=== PATIENT | male | born 1995 | race Caucasian/White ===

== ENCOUNTER 2017-12-08 20:58 | Emergency (ER) | payer OTHER ==
[~2017-12-08] VITALS: Ht 182.9 cm; Wt 74.5 kg
[2017-12-08 21:03] VITALS: Ht 182.9 cm; Wt 74.5 kg
--- NOTE | 2017-12-08 22:03 | DIAGNOSTIC IMAGING REPORT ---
HEAD WITHOUT CONTRAST (CT) CLINICAL HISTORY: 22 years-old Male presenting with FALL, SCALP LAC, EtOH. TECHNIQUE: Multidetector CT imaging of the head was performed without the use of intravenous contrast. IV contrast: None. A dose lowering technique was used consistent with the principles of ALARA (as low as reasonably achievable). COMPARISON: None. CT DOSE (mGy.cm): The estimated cumulative dose is 1671.01 mGy.cm. FINDINGS: Motion artifact degrades image quality. Plaster Helper topogram: Unremarkable. Ventricles and sulci normal in size. Brain parenchyma normal in appearance with preserved mendez-white differentiation. No mass effect or midline shift. No hemorrhage or acute territorial infarct. No extra-axial fluid collection. Paranasal sinuses and mastoid air cells clear. Calvarium intact. IMPRESSION: 1. No acute intracranial abnormality. Electronically signed by: Rigo Byrnes M.D. 12/08/2017 10:01 PM Dictated Date/Time: 12/08/2017 9:58 PM
--- NOTE | 2017-12-08 22:07 | DIAGNOSTIC IMAGING REPORT ---
CERVICAL SPINE W/O CLINICAL HISTORY: 22 years-old Male presenting with FALL, SCALP LAC. TECHNIQUE: Multidetector CT of the cervical spine was performed without the use of intravenous contrast. IV contrast: None. A dose lowering technique was used consistent with the principles of ALARA (as low as reasonably achievable). COMPARISON: None. CT DOSE (mGy.cm): The estimated cumulative dose is 1671.[address] head. FINDINGS: Glass Crusher topogram: Unremarkable. Motion artifact significantly degrades image quality limiting diagnostic sensitivity. Normal cervical lordosis. No gross evidence of acute fracture or subluxation. Vertebral bodies maintain normal height and alignment. Intervertebral disc heights preserved. No degenerative change. No osseous spinal canal or neural foraminal narrowing. Skull base intact. Paraspinal soft tissues within normal limits allowing for noncontrast technique. Lung apices clear. IMPRESSION: No acute osseous injury of the cervical spine allowing for extensive motion artifact. Electronically signed by: Rigo Byrnes M.D. 12/08/2017 10:05 PM Dictated Date/Time: 12/08/2017 10:03 PM
--- NOTE | 2017-12-08 22:44 | EMERGENCY ROOM VISIT NOTE ---
ED Visit Note First contact with patient: 21:14 CHIEF COMPLAINT: Scalp laceration HISTORY OF PRESENT ILLNESS: Patient is a 22-year-old male brought to the emergency department by male friends and accompanied by hospital security to the exam room for evaluation of a scalp laceration that he sustained just prior to arrival. Patient is visibly intoxicated, and initially was uncooperative hence involvement of the security staff. Patient is intoxicated and admits to drinking alcohol this evening. He reportedly fell down stairs and hit the back of his head although friends who accompany him were not with him at the time of the incident and therefore cannot corroborate his story. They did apply ice, and the patient did rinse his head. Further history is unable to be obtained due to the patient's level of intoxication. He denies any complaints. REVIEW OF SYSTEMS: Unable to be assessed due to patient's level of intoxication and lack of cooperation. PMH: The patient is reportedly healthy without any chronic medical problems. Takes medications for migraines. 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 PHYSICAL EXAM: Vital Signs: Reviewed Nurse's notes. CONSTITUTIONAL: Patient is a visibly intoxicated, sporadically cooperative 22- year-old male who is awake and alert and in no acute distress. He smells of alcohol, and is slurring speech. He is able to ambulate independently into the bathroom. HEENT: 1.5 cm right occipital scalp laceration noted. Pupils equal, round, reactive to light and accommodation. EOMs intact without nystagmus. Mild conjunctival injection noted.. Tympanic membranes intact, with normal landmarks. External canals are clear. No hemotympanum or Gramajo sign. Oral and nasopharynx are clear. No CSF rhinorrhea. Mucous membranes are moist. NECK: Supple, nontender, no lymphadenopathy. Full range of motion. HEART: Tachycardic rate and rhythm, with normal S1 and S2, no murmur or gallop or rub is heard. LUNGS: Breath sounds equal and clear to auscultation without wheezes, rales, or rhonchi heard. SKIN: No lesions or rash, normal skin turgor. EXTREMITIES: No cyanosis, edema, joint tenderness or swelling. No deformity. NEUROLOGICAL: Alert and oriented x4. Cranial nerves 2 through 12, sensation and strength grossly intact. Gait is normal. EMERGENCY DEPARTMENT COURSE: The patient was seen and evaluated as above. Given the unwitnessed fall, resulting in the scalp laceration and associated level of intoxication, head and cervical spine CT scans were obtained and were negative for acute pathology. The patient's scalp wound was cleaned with saline and Betadine and irrigated with saline. Sterile technique was used and the wound edges were then approximated with 3 skin sheree. Bacitracin ointment was applied as a dressing. Verbal and written head injury and wound care instructions were outlined with both the patient and 3 male friends who were sober, and were willing and comfortable to be responsible for the patient through the remainder of the evening. Differential diagnoses entertained included laceration, scalp contusion, acute intracranial bleed, skull fracture, C-spine injury, among others. Blood pressure screening : Patient was found to have normal blood pressure on screening and does not require follow-up. Unable to verify patient's medications, he stated only that he takes a migraine medication. CERVICAL SPINE W/O CLINICAL HISTORY: 22 years-old Male presenting with FALL, SCALP LAC. TECHNIQUE: Multidetector CT of the cervical spine was performed without the use of intravenous contrast. IV contrast: None. A dose lowering technique was used consistent with the principles of ALARA (as low as reasonably achievable). COMPARISON: None. CT DOSE (mGy.cm): The estimated cumulative dose is 1671.[address] head. FINDINGS: Sandwich Counter Attendant topogram: Unremarkable. Motion artifact significantly degrades image quality limiting diagnostic sensitivity. Normal cervical lordosis. No gross evidence of acute fracture or subluxation. Vertebral bodies maintain normal height and alignment. Intervertebral disc heights preserved. No degenerative change. No osseous spinal canal or neural foraminal narrowing. Skull base intact. Paraspinal soft tissues within normal limits allowing for noncontrast technique. Lung apices clear. IMPRESSION: No acute osseous injury of the cervical spine allowing for extensive motion artifact. HEAD WITHOUT CONTRAST (CT) CLINICAL HISTORY: 22 years-old Male presenting with FALL, SCALP LAC, EtOH. TECHNIQUE: Multidetector CT imaging of the head was performed without the use of intravenous contrast. IV contrast: None. A dose lowering technique was used consistent with the principles of ALARA (as low as reasonably achievable). COMPARISON: None. CT DOSE (mGy.cm): The estimated cumulative dose is 1671.01 mGy.cm. FINDINGS: Motion artifact degrades image quality. Sandwich Counter Attendant topogram: Unremarkable. Ventricles and sulci normal in size. Brain parenchyma normal in appearance with preserved mendez-white differentiation. No mass effect or midline shift. No hemorrhage or acute territorial infarct. No extra-axial fluid collection. Paranasal sinuses and mastoid air cells clear. Calvarium intact. IMPRESSION: 1. No acute intracranial abnormality. Problem List Medical Problems: (1) Migraine Status: Chronic Current/Historical Medications Unable to Obtain Active Prescriptions or Reported Meds Allergies Coded Allergies: No Known Allergies (Unverified , 12/08/17) Vital Signs Date Time Temp Pulse Resp B/P (MAP) Pulse Ox O2 Delivery O2 Flow Rate FiO2 12/08/17 22:49 36.8 98 18 118/60 97 Room Air 12/08/17 21:03 98 18 116/54 97 Room Air Departure Information Impression Primary Impression: Occipital scalp laceration Additional Impression: Alcohol intoxication Prescriptions Unable to Obtain Active Prescriptions or Reported Meds Referrals No Doctor, Assigned (PCP) Patient Instructions [facility] Additional Instructions Keep wound clean and dry. Do not allow any crusting or dried blood to accumulate on sheree. Wash gently with mild soap and water. Use an antibiotic ointment for 3-4 days, then let wound dry. Staple removal in 10-12 days. Ice for swelling and pain. Tylenol 1000 mg every 6 hrs for pain. ALCOHOL OVERDOSE INSTRUCTIONS: DO NOT drive, drink alcohol, operate machinery, or perform dangerous activities today. Rest and drink plenty of fluids. Drink alcohol responsibly and only in moderation. Avoid alcohol until you are 21. Return to the ER for vomiting, abdominal pain, severe headache, neck pain, vomiting blood or bloody stools, passing out, worsening of your condition, or as needed. CONCUSSION DISCHARGE INSTRUCTIONS: What is a concussion? A concussion is a disturbance in the function of the brain caused by a direct or indirect force to the head. It results in a variety of symptoms like: headache, balance problems, nausea, vomiting, vision problems, hearing problems/ringing, drowsiness, irritability, and/or difficulty concentrating or remembering. A concussion may, or may not involve memory problems or loss of consciousness. Concussion instructions: Stop and stay away from ALL physical activity until you are symptom free from: Headaches Balance problems Feeling "dinged" Poor concentration Drowsy Fatigued Rest and avoid strenuous activities for the next few days. Get 8-10 hours of sleep per night. Limit activities that involve significant concentration and attention during this time to speed your recovery. This includes studying, attending school, playing video games, and heavy reading. Your brain needs to rest. Eat right and eat often. Now is the time to feed your brain. Well balanced diets that avoid high sugar foods, sodas, caffeine, etc. are better for your brain. NO ALCOHOL OR DRUGS! Avoid stimulants like caffeine, red bull, mountain dew, "energy" drinks, etc. Tylenol(acetaminophen) may be used for headaches. Use 1000mg every six hours as needed. Avoid using more than 3000mg in a 24 hour period. Avoid anti-inflammatories such as aspirin, ibuprofen, Alleve, naprosyn, Motrin, or Advil as these can interfere with blood clotting and lead to bleeding within the brain after a traumatic injury. Stepwise return to sports for athletes: You may progress to the next step after 24 hours if you are symptom free. If you experience symptoms, you must return to the previous stage and try again after another 24 hours of rest and being symptom free. Best case scenario is full contact game play in 96 hours from the time of injury. Remember repeat concussions are worse than the first. Time invested in recovery will allow for better performance and less downtime in the future. If you have any questions see your obedience trainer or make an appointment to see one of the team physicians. 1) No activity, complete rest. Once all symptoms have resolved, report to the team physician or obedience trainer to be cleared to progress to step 2. 2) Start light aerobic exercise, such as walking or stationary cycling, no resistance training permitted. 3) Sport specific exercises. Add light resistance slowly. Go slow to allow your body to readapt. 4) Non-contact full speed practice. 5) Full contact practice and/or game play. FOLLOW UP INSTRUCTIONS: You should have a follow up with your family doctor or team physician in 3-5 days regarding your injury. If you had X-rays or CT scanning performed, our Radiologists will review the studies. If important additional findings are discovered you will be notified within 24-48 hours. POST CONCUSSIVE SYNDROME: Occasionally patients can experience a postconcussive syndrome which includes prolonged headaches and memory difficulties. This may occur over the next several days, weeks or rarely, even months. It is important to have a primary care physician follow-up in order to help if the situation develops. Problems could arise over the next 24 to 48 hours. You should not be left alone and MUST go to the hospital immediately if you: -Have a headache that suddenly gets worse. -Are very drowsy or cannot be woken up from sleep. -Can't recognize people or places. -Have repeated vomiting. -Behave unusually, seemed confused, or start acting irritable. -Have a seizure (arms and legs start jerking uncontrollably). -Have weak or numb arms or legs. -Are unsteady on your feet -Experience slurred speech or difficulty speaking. Problem Qualifiers Primary Impression: Occipital scalp laceration Encounter type: initial encounter Qualified Codes: S01.01XA - Laceration without foreign body of scalp, initial encounter Additional Impression: Alcohol intoxication Complication of substance-induced condition: uncomplicated Qualified Codes: F10.920 - Alcohol use, unspecified with intoxication, uncomplicated
[2017-12-08 22:49] VITALS: BP 118/60; PULSE 98; TEMP 36.8; O2SAT 97
== END 2017-12-08 22:50 | disposition home or self-care (01) ==
LOC: C.EDB 21:00 → C.EDD 22:50
DX: S01.01XA Laceration without foreign body of scalp, initial encounter (principal); W10.9XXA Fall (on) (from) unspecified stairs and steps, initial encounter; F10.920 Alcohol use, unspecified with intoxication, uncomplicated